=== PATIENT | female | born 1980 | race Caucasian/White ===

== ENCOUNTER 2017-02-01 16:37 | Emergency (ER) | payer OTHER ==
[~2017-02-01] VITALS: Ht 170.2 cm; Wt 93.0 kg
--- NOTE | ~2017-02-01 | CR72 ---
[facility]. [facility] A Service of [facility] & [facility] RADIOLOGY TEXT RESULTS PATIENT: MANASA TUCKER LOCATION: SED : 78 UNIT #: [id number] AGE: [address]: Torito Stanley MD SEX: F ORDER DR: [id number] [place] [id number] E MR#: [id number] Acc #: [id number] NAME: MANASA TUCKER : 1980 SEX: F STUDY DATE/TIME: 02/01/2017 17:38 UNIT: SED ROOM: STUDY DESCRIPTION: CR Chest Single View Portable Attending Physician: Torito Stanley M.D. Ordering Physician: Torito Stanley M.D. Primary Care Physician: No Primary Care Physician MEDICAL IMAGING REPORT This report is preliminary unless electronic signature is present. EXAM Portable chest 02/01/2017 HISTORY 36-year-old female with shortness of air and cough beginning yesterday. COMPARISON Chest 06/22/2012. FINDINGS Frontal chest demonstrates clear lungs. No pleural effusion or pneumothorax. Heart size and mediastinum are normal. Pulmonary vasculature normal. IMPRESSION No acute cardiopulmonary findings. Dictated by... Curtis Figueroa M.D. THIS IS AN ELECTRONICALLY VERIFIED REPORT Curtis Figueroa M.D. at 02/02/2017 3:14 PM TAMMY/christina TD: 02/02/2017 07:52 JOB #: [id number] MEDICAL IMAGING REPORT Page 1 of 1
[~2017-02-01 16:37] MED LIST: ADULT TUSS100 MG/5 M PO; ALBUTEROL17 GM INH; BENZONATATE PO; NO MEDICATIONS; PREDNISONE10 MG/DOSE; SUDAFED PO; ZITHROMAX1 G/PKT PO; [UNRECOGNIZED DRUG - OTHER] TP
== END 2017-02-01 19:01 | disposition home or self-care (01) ==
LOC: SED 16:37
DX: J01.00 Acute maxillary sinusitis, unspecified (principal); J01.20 Acute ethmoidal sinusitis, unspecified; J20.9 Acute bronchitis, unspecified; H66.91 Otitis media, unspecified, right ear; F17.210 Nicotine dependence, cigarettes, uncomplicated; Z98.51 Tubal ligation status
CPT/HCPCS: 71010; 94640; 99284